=== PATIENT | female | born 1990 | race Caucasian/White ===

== ENCOUNTER 2017-11-03 23:22 | Emergency (ER) | payer MEDICAID ==
[2017-11-04 00:16] VITALS: PULSE 86; RESP 20
--- NOTE | 2017-11-04 01:37 | C.PDOC ---
History Of Present Illness Patient is a 27 y/o female who presents to the ED with chronic intermittent back pain for the last 1 year. Patient has been seen by a chiropractor and PMD before; currently takes ibuprofin for the pain. Patient admits medications are no longer helping and the pain has been persistent for the last week. Patient denies receiving any studies on her back and requests an xray and MRI. Denies weakness, incontinence, URI symptoms, or trauma. No other physical complaints at this time. Time Seen by Provider: 11/04/17 00:25 Chief Complaint (Nursing): Back Pain History Per: Patient History/Exam Limitations: no limitations Onset/Duration Of Symptoms: Days (1 week), Persistent Current Symptoms Are (Timing): Still Present Previous Symptoms: Chronic Pain Associated Symptoms: denies: Incontinence, New Weakness Recent travel outside of the [place]: No Past Medical History Reviewed: Historical Data, Nursing Documentation, Vital Signs Vital Signs: Last Vital Signs Temp 97.8 F 11/04/17 02:00 Pulse 86 11/04/17 02:00 Resp 20 11/04/17 02:00 BP 130/78 11/04/17 02:00 Pulse Ox 100 11/04/17 03:20 - Medical History PMH: No Chronic Diseases Surgical History: Appendectomy Family History: States: No Known Family Hx - Social History Hx Alcohol Use: No Hx Substance Use: No - Immunization History Hx Tetanus Toxoid Vaccination: No Hx Influenza Vaccination: No Hx Pneumococcal Vaccination: No Review Of Systems ENT: Negative for: Nose Discharge, Nose Congestion, Throat Pain Respiratory: Negative for: Cough Genitourinary: Negative for: Incontinence Musculoskeletal: Positive for: Back Pain Neurological: Negative for: Weakness Physical Exam - Physical Exam Appears: Well, Non-toxic, No Acute Distress Skin: Normal Color, Warm, Dry Head: Atraumatic, Normacephalic Eye(s): bilateral: Normal Inspection Oral Mucosa: Moist Chest: Symmetrical Cardiovascular: Rhythm Regular, No Murmur Respiratory: Normal Breath Sounds, No Rales, No Rhonchi, No Wheezing Gastrointestinal/Abdominal: Soft, No Tenderness Back: Normal Inspection, No CVA Tenderness, No Vertebral Tenderness, No Decreased ROM, No Paraspinal Tenderness, No Straight Leg Raising, Other (FROM ) Extremity: Normal ROM Extremity: Bilateral: Atraumatic Neurological/Psych: Oriented x3, Normal Motor, Normal Sensation Gait: Steady ED Course And Treatment O2 Sat by Pulse Oximetry: 100 - Other Rad LS spine X-Ray: Interpreted by Me, Viewed By Me Interpretation: No acute findings; negative. Progress Note: LS spine xr ordered. On re-eval, patient was advised to follow up with PMd for further evaluation. Prescriptions given and return precautions were discussed Disposition Counseled Patient/Family Regarding: Diagnosis, Need For Followup - Disposition Disposition: HOME/ ROUTINE Disposition Time: 01:34 Condition: STABLE Additional Instructions: Please follow up with PMD Take meds as directed Increase PO fluids Return to ER if worse Prescriptions: Cyclobenzaprine [Cyclobenzaprine HCl] 10 mg PO HS #7 tab Naproxen [Naprosyn] 1 tab PO BID PRN #20 tab PRN Reason: Pain Instructions: Back Pain (ED) Forms: [facility] (Malaysian) - Clinical Impression Clinical Impression: Back pain - Scribe Statement The provider has reviewed the documentation as recorded by the Scribe Alisha Gutierrez All medical record entries made by the Scribe were at my direction and personally dictated by me. I have reviewed the chart and agree that the record accurately reflects my personal performance of the history, physical exam, medical decision making, and the department course for this patient. I have also personally directed, reviewed, and agree with the discharge instructions and disposition.
[2017-11-04 02:01] VITALS: BP 130/78; TEMP 97.8
[2017-11-04 03:13] VITALS: O2SAT 100
--- NOTE | 2017-11-04 08:28 | RAD ---
PROCEDURE: Radiographs of the Lumbar Spine. HISTORY: pain to low back COMPARISON: No prior. FINDINGS: BONES: Normal alignment. No listhesis. No fracture. DISC SPACES: Unremarkable. OTHER FINDINGS: None. IMPRESSION: Unremarkable radiographs of the lumbar spine.
== END 2017-11-04 02:00 | disposition home or self-care (01) ==
LOC: C.ER 23:22
DX: M54.9 Dorsalgia, unspecified (principal)